=== PATIENT | female | born 1970 | race Hispanic/Latino ===

== ENCOUNTER 2025-07-07 06:39 | Emergency (ER) | payer OTHER ==
[~2025-07-07] VITALS: Ht 152.4 cm; Wt 87.0 kg
--- NOTE | ~2025-07-07 | EKG ---
[facility] [address] [place], [place] [address] Draft EK completed, results pending confirmation PATIENT NAME: RENATA MORALES Electrocardiogram DATE OF : 74 PHYSICIAN: PRELIMINARY REPORT #: [id number] REPORT IS CONFIDENTIAL AND NOT TO BE RELEASED WITHOUT AUTHORIZATION
[2025-07-07] MEDS ORDERED: ASPIRIN 81 MG CHEW PO ONE (06:45)
[2025-07-07 06:53] LABS: BASOPHILS 0.8 % (0.1-1.2); EOSINOPHILS 2.0 % (0.7-5.8); LYMPHOCYTES 16.6 % (19.3-51.7); MCH 29.7 PG (25.6-32.2); MCHC 31.1 g/dL (32.2-35.5); MCV 95.7 fL (79.4-94.8); MONOCYTES 4.1 % (4.7-12.5); NEUTROPHILS 76.3 % (34.0-71.1); RBC 4.37 M/uL (3.93-5.22)
[2025-07-07 07:23] LABS: ALT (SGPT) 182.0 U/L (14-59); AST (SGOT) 127.0 U/L (15-37); GLOMERULAR FILTRATION RATE,EST 104.0 mL/min (>60); PROTEIN, TOTAL 7.3 g/dL (6.4-8.2); UREA NITROGEN 16.0 mg/dL (7-18)
[2025-07-07 07:24] LABS: INR 1.04 (0.80-1.30); PROTIME 13.2 Sec (11.2-14.2)
[2025-07-07] MEDS ORDERED: FUROSEMIDE 40 MG/4 ML VIAL IV ONE (08:15)
[2025-07-07] MEDS ORDERED: LASIX20 MG PO (08:25)
[2025-07-07 10:24] VITALS: BP 155/94
[2025-07-09] MEDS ORDERED: ALDACTONE25 MG PO (04:55)
[2025-07-09] MEDS ORDERED: ZESTRIL10 MG PO (04:55)
[2025-07-09] MEDS ORDERED: METOPROLOL SUCC50 MG PO (04:55)
== END 2025-07-07 10:25 | disposition home or self-care (01) ==
LOC: ED 06:39
PROVIDERS: Family Medicine
DX: R07.89 Other chest pain (principal); I11.0 Hypertensive heart disease with heart failure; I50.9 Heart failure, unspecified
CPT/HCPCS: 36415; 71045; 80053; 83735; 83880; 84484; 85025; 85379; 85610; 93005; 93010; 96374; 99284-25; A9270; J1938